=== PATIENT | female | born 1970 | race African-American/Black ===

== ENCOUNTER 2021-09-01 08:45 | Outpatient (CLI) | payer MEDICARE, MEDICAID | END 2021-09-01 08:46 | disposition home or self-care (01) | LOC: CSHULT 08:45 | PROVIDERS: ATTEND Internal Medicine Nephrology | DX: I12.9 Hypertensive chronic kidney disease with stage 1 through stage 4 chronic kidney disease, or unspecified chronic kidney disease (principal); N18.2 Chronic kidney disease, stage 2 (mild) | CPT/HCPCS: 76770 ==